=== PATIENT | male | born 1940 | race Caucasian/White ===

== ENCOUNTER 2018-12-12 10:23 | Day surgery (SDC) | payer MEDICARE, OTHER ==
[2018-12-12] VITALS (12 sets, daily range): BP systolic 108–167; BP diastolic 52–92; PULSE 63–92; RESP 16–29; Ht 160 cm; Wt 60.2 kg
[~2018-12-12] VITALS: Ht 160 cm; Wt 60.2 kg
[~2018-12-12 10:23] MED LIST: SEVOFLURANE 15 MIN ONE
[2018-12-12] MEDS ORDERED: ASPI81TA52 PO (11:56)
[2018-12-12] MEDS ORDERED: ISOS60TA PO (11:56)
[2018-12-12] MEDS ORDERED: TAMS0.4C2 PO (11:57)
--- NOTE | 2018-12-12 12:13 | HPN ---
Date/Time of Note Date/Time of Note DATE: 12/12/18 TIME: 12:13 Interval H&P Admission Note Pt. seen H&P reviewed: No system changes MYKE COOPER MD Dec 12, 2018 12:13
[2018-12-12] MEDS ORDERED: CIPROFLOXACIN 400MG/D5W 200 ML IVPB ONE (12:30)
[2018-12-12] MEDS ORDERED: LACTATED RINGER'S 1,000 ML IV SCH (12:30)
--- NOTE | 2018-12-12 12:42 | PREAC ---
Date/Time of Note Date/Time of Note DATE: 12/12/18 TIME: 12:40 Anesthesia Eval and Record Evaluation Time Pre-Procedure Interview DATE: 12/12/18 TIME: 12:40 Age 78 Sex male NPO: 8 hrs Preoperative diagnosis Bladder stones Planned procedure Cystoscopy, laser lithotripsy Past Medical History Past Medical History: Includes Cardio: HTN, Dyslipidemia Pulm: COPD Surgery & Anesthesia Issues No known issue Meds Anticoagulation: Yes Beta Vikas within 24 hr: No Reason Beta Vikas not given: Pt. not on B-Vikas Reported Medications Tamsulosin Hcl* (Tamsulosin Hcl*) 0.4 Mg Cap.er.24h, 0.4 MG PO HS, CAP 12/12/18 Isosorbide Mononitrate* (Isosorbide Mononitrate*) 60 Mg Tab.er.24h, 60 MG PO DAILY, TAB 12/12/18 Aspirin (Low Dose Aspirin) 81 Mg Tablet.dr, 81 MG PO DAILY, #30 TAB 12/12/18 Current Medications Lactated Ringer's 1,000 ml @ 30 mls/hr Q24H IV ; Start 12/12/18 at 12:30; Status UNV Ciprofloxacin/ Dextrose 200 ml @ 200 mls/hr ONCE ONCE IVPB ; Start 12/12/18 at 12:30; Stop 12/12/18 at 13:29; Status UNV Meds reviewed: Yes Allergies Coded Allergies: No Known Allergy (Unverified , 12/12/18) Allergies Reviewed: Yes Labs/Studies Labs Reviewed: Reviewed by anesthesiologist Result Diagram: 12/12/18 1210 Laboratory Tests 12/12/18 12:10 test: N/A Studies: ECG Pre-procedure Exam Last vitals Vital Signs Date Temp Pulse Resp B/P (MAP) Pulse Ox O2 O2 Flow FiO2 Time Delivery Rate 12/12/18 98.1 63 16 140/67 96 Room Air 12:32 (91) Airway: Adequate mouth opening, Adequate thyromental dist Mallampati: Mallampati II Teeth: Normal Lung: Normal Heart: Normal ASA Physical Status ASA physical status: 3 Emergency: None Planned Anesthetic General/MAC: LMA Planned Pain Management Parenteral pain med Pre-operative Attestations Prior to commencing anesthesia and surgery, the patient was re-evaluated, there was verification of: *The patient's identity *The results of appropriate recent lab work and preoperative vital signs *The above evaluation not changing prior to induction *Anesthetic plan, risk benefits, alternative and complications discussed with patient/family; questions answered; patient/family understands, accepts and wishes to proceed. DARIUSZ GABRIEL MD Dec 12, 2018 12:42
[2018-12-12] MEDS ORDERED: FENTAnyl 50 MCG/ML VIAL ONE (12:52)
[2018-12-12] MEDS ORDERED: MIDAZOLAM 1 MG/ML 2 ML INJ ONE (12:52)
[2018-12-12] MEDS ORDERED: CIPROFLOXACIN 400MG/D5W 200 ML ONE (13:40)
[2018-12-12] MEDS ORDERED: LIDOCAINE 2% (SDV) 5 ML INJ ONE (13:40)
[2018-12-12] MEDS ORDERED: ETOMIDATE 20 MG INJ ONE (13:40)
--- NOTE | 2018-12-12 13:51 | OPR ---
Date/Time of Note Date/Time of Note DATE: 12/12/18 TIME: 13:46 Operative Report Procedure Date: Dec 12, 2018 Preoperative Diagnosis Bladder stones and benign prostatic hypertrophy Postoperative Diagnosis Same Operation/Procedure Performed Cystolitholopaxy Surgeon see signature line Ash Worker Momo Garnett Anesthesia Type: general Anesthesiologist: DARIUSZ GABRIEL MD Estimated Blood Loss: none Transfusion none Specimen Bladder stones fragments Grafts/Implants none Complications none Pt Condition Post Procedure: stable Disposition: PACU Indications Bladder stones Procedure Description Patient was brought to the operating room and given general anesthesia. Patient was given 400 mg of Cipro IV at the start of the procedure. Timeout was done and the patient was identified by his name, birthdate and the procedure. He was then positioned in the lithotomy position and the genital area was prepped and draped in the usual sterile manner. The urethral meatus was dilated with [place] dilators up to #28 [place]. Then #25 [place] cystoscope sheath was introduced under direct vision through the penile urethra all the way to the bladder. Patient was found to have a large median lobe protruding into the bladder. He also had 3 stones in the bladder. The stones were then broken into smaller pieces with the holmium laser. All the pieces were drained out of the bladder and then the bladder was inspected thoroughly and there was no additional stones or bladder injury. The ureteral orifices were visualized. The scope was then removed and a 20 [place] 10 mL balloon L[place] catheter was inserted and connected to a drainage bag. The patient tolerated the procedure well and was transferred to the recovery room in a stable and satisfactory condition. MYKE COOPER MD Dec 12, 2018 13:51
--- NOTE | 2018-12-12 13:56 | PAC ---
Date/Time of Note Date/Time of Note DATE: 12/12/18 TIME: 13:56 Post-Anesthesia Notes Post-Anesthesia Note Last documented vital signs Vital Signs Date Temp Pulse Resp B/P (MAP) Pulse Ox O2 O2 Flow FiO2 Time Delivery Rate 12/12/18 98.0 13:53 12/12/18 63 16 140/67 96 Room Air 12:32 (91) Activity: WNL Respiratory function: WNL Cardiovascular function: WNL Mental status: Baseline Pain reasonably controlled: Yes Hydration appropriate: Yes Nausea/Vomiting absent: Yes Comments BP:112/56, P:78, Spo2:100%, T:98,8 DARIUSZ GABRIEL MD Dec 12, 2018 13:56
[2018-12-12] MEDS ORDERED: HYDROmorphONE 1 MG/5 ML IV SYRINGE IV PRN ×2 (14:00)
[2018-12-12] MEDS ORDERED: FENTAnyl 50 MCG/ML VIAL IV PRN (14:00)
[2018-12-12] MEDS ORDERED: DIPHENHYDRAMINE 50 MG INJ IV PRN (14:00)
[2018-12-12] MEDS ORDERED: HYDROCODONE/APAP (5/325) TAB PO PRN (14:00)
[2018-12-12] MEDS ORDERED: LABETALOL HCL 20MG INJ IV PRN (14:00)
[2018-12-12] MEDS ORDERED: ONDANSETRON 4 MG INJ IV PRN (14:00)
[2018-12-12] MEDS ORDERED: MIDAZOLAM 1 MG/ML 2 ML INJ IV PRN (14:00)
[2018-12-12] MEDS ORDERED: METOCLOPRAMIDE 10 MG INJ IV PRN (14:00)
[2018-12-12] MEDS ORDERED: MEPERIDINE 25 MG INJ IV PRN (14:00)
[2018-12-12] MEDS ORDERED: hydrALAzine 20 MG INJ IV PRN (14:00)
== END 2018-12-12 15:30 | disposition home or self-care (01) ==
LOC: SDS 10:23
PROVIDERS: ATTEND Urology
DX: N20.0 Calculus of kidney (principal); N40.0 Benign prostatic hyperplasia without lower urinary tract symptoms; I10 Essential (primary) hypertension; E78.5 Hyperlipidemia, unspecified; J44.9 Chronic obstructive pulmonary disease, unspecified
CPT/HCPCS: 52317; 80048; 85025; 85610; 85730; 87086; 88300; J0744; J2250; J3010